=== PATIENT | female | born 1945 | race Native Hawaiian/Other Pacific Islander ===

== ENCOUNTER 2017-01-25 08:38 | Outpatient (CLI) | payer OTHER ==
[2017-01-25 09:38] LABS: POTASSIUM 3.5 mmol/L (3.6-5.2)
[2017-01-25 09:58] LABS: PLATELET COUNT 258 K/uL (152-353)
== END 2017-01-25 09:40 | disposition home or self-care (01) ==
LOC: LABW 08:38
PROVIDERS: Internal Medicine
DX: E11.9 Type 2 diabetes mellitus without complications (principal); E03.8 Other specified hypothyroidism
CPT/HCPCS: 36415; 80053; 80061; 81000; 82043; 82570; 83036; 84439; 84443; 85027

== ENCOUNTER 2017-08-19 09:28 | Outpatient (CLI) | payer OTHER ==
[2017-08-19 10:18] LABS: POTASSIUM 3.6 mmol/L (3.6-5.2)
[2017-08-19 10:30] LABS: PLATELET COUNT 324 K/uL (152-353)
== END 2017-08-19 19:50 | disposition home or self-care (01) ==
LOC: LABW 09:28
PROVIDERS: Internal Medicine
DX: E11.9 Type 2 diabetes mellitus without complications (principal); R82.99 Other abnormal findings in urine
CPT/HCPCS: 36415; 80053; 80061; 81000; 83036; 84439; 84443; 85027; 87077; 87086; 87088; 87186

== ENCOUNTER 2018-09-17 09:43 | Outpatient (CLI) | payer OTHER ==
[2018-09-17 10:32] LABS: PLATELET COUNT 302 K/uL (152-353)
[2018-09-17 11:00] LABS: POTASSIUM 3.2 mmol/L (3.6-5.2)
== END 2018-09-17 19:24 | disposition home or self-care (01) ==
LOC: LABW 09:43
PROVIDERS: Internal Medicine
DX: E11.9 Type 2 diabetes mellitus without complications (principal); E03.9 Hypothyroidism, unspecified
CPT/HCPCS: 36415; 80053; 80061; 81000; 82043; 82570; 83036; 84439; 84443; 85027

== ENCOUNTER 2018-10-19 16:05 | Outpatient (CLI) | payer OTHER ==
[2018-10-19] MEDS ORDERED: LOSA50TA PO (16:41)
[2018-10-19] MEDS ORDERED: METFORMIN HCL500 MG PO (16:41)
[2018-10-19] MEDS ORDERED: LIPITOR10 MG PO (16:42)
[2018-10-19] MEDS ORDERED: HYDROCHLOROT12.5 M1 PO (16:42)
[2018-10-19] MEDS ORDERED: UNITH DIRECT75 MCG PO (16:43)
[2018-10-20] MEDS ORDERED: COZAAR100 MG PO (16:34)
[2018-10-20] MEDS ORDERED: TRIA0.1C19 TOP (16:38)
[2018-10-20] MEDS ORDERED: IVERMECTIN3 MG PO (16:40)
[2018-10-20] MEDS ORDERED: [UNRECOGNIZED DRUG - OTHER] EX (16:43)
[2018-10-20] MEDS ORDERED: [UNRECOGNIZED DRUG - OTHER] EX (16:44)
== END 2018-10-19 16:09 | disposition short-term general hospital (02) ==
LOC: AMB 16:05
DX: R41.82 Altered mental status, unspecified (principal); R25.1 Tremor, unspecified; R50.9 Fever, unspecified
CPT/HCPCS: A0425; A0427

== ENCOUNTER 2018-10-19 16:15 | Inpatient (IN) | payer OTHER ==
[~2018-10-19] VITALS: Ht 157.5 cm; Wt 60.5 kg
[2018-10-19 16:15] VITALS: BP 125/54; TEMP 102.9
[2018-10-19] MEDS ORDERED: LOSA50TA PO (16:41)
[2018-10-19] MEDS ORDERED: METFORMIN HCL500 MG PO (16:41)
[2018-10-19] MEDS ORDERED: LIPITOR10 MG PO (16:42)
[2018-10-19] MEDS ORDERED: HYDROCHLOROT12.5 M1 PO (16:42)
[2018-10-19] MEDS ORDERED: UNITH DIRECT75 MCG PO (16:43)
[2018-10-19 16:59] LABS: PLATELET COUNT 233 K/uL (152-353)
[2018-10-19 17:15] LABS: PARTIAL THROMBOPLASTIN TIME 24.7 SECONDS (24.5-33.6)
[2018-10-19 17:17] LABS: POTASSIUM 2.6 mmol/L (3.6-5.2); SODIUM 134 mmol/L (136-145)
[2018-10-19 17:54] VITALS: TEMP 98.1
--- NOTE | 2018-10-19 20:30 | NUR ---
RECIEVED REPORT FROM ADELINA MEDINA RN
--- NOTE | 2018-10-19 20:55 | NUR ---
PT ARRIVED VIA W/C. PT AWAKE AND ALERT. ABLE TO TRANSFER TO BED W/O ASSIST.
[2018-10-20] VITALS (7 sets, daily range): BP systolic 91–123; BP diastolic 48–69; TEMP 97.5–102.2; Ht 157.5 cm; Wt 60.5 kg
--- NOTE | 2018-10-20 01:10 | NUR ---
Dr. Hilario at bedside. New orders received for Toradol 15mg IV x1 dose, stat labs, EKG and Chest XRay, noted and carried out.
--- NOTE | 2018-10-20 01:20 | NUR ---
Blood obtained for labs by Christopher Menard RN.
--- NOTE | 2018-10-20 01:20 | NUR ---
EKG obtained by Respiratory Therapist Wilton. Patient tolerated well. Dr. Hilario remains at bedside.
--- NOTE | 2018-10-20 01:26 | NUR ---
Radiology at bedside, obtained chest xray. Patient tolerated well.
[2018-10-20 01:30] LABS: PLATELET COUNT 185 K/uL (152-353)
[2018-10-20 01:38] LABS: POTASSIUM 3.2 mmol/L (3.6-5.2)
--- NOTE | 2018-10-20 01:53 | NUR ---
Patient's labs faxed to ER Department for Dr. Hilario to review.
--- NOTE | 2018-10-20 02:00 | NUR ---
Labs faxed to Dr. Hilario in ER Department, no new orders noted at this time.
--- NOTE | 2018-10-20 02:30 | NUR ---
TEMP 100.7
--- NOTE | 2018-10-20 02:45 | NUR ---
Dr. Hilario at bedside reassessing Patient. No new orders noted at this time.
--- NOTE | 2018-10-20 11:04 | NUR ---
PATIENT IS ON A 1800 CAL[employer]IE ADA DIET PLAN WITH DX. OF SIRS, UTI AND HYPOKALEMIA AND IS 62" AND IBW 110+/-10% AND WEIGHT AT 126.8 LBS AND GLUCOSE, CREAT, TSH, TRIG, WBC ALL ELEVATED AND K, CO2, CA, MG, HGB, HCT AND RBC ALL DEPRESSED. KCAL NEEDS FOR WEIGHT 9313-1921 X 30/35, PROTEIN 57.5-67.7 AND FLUIDS 2357++ TOLERATED D/T DX. IF NOT EATING 90-100% ADD A SUPPLEMENT. BMI 23.22 WNL'S. IF EATING POOR ADD A SUPPLEMENT TID RECOMMEND: 1- INCREASE FLUIDS TOLERATED. 2-IF NOT EATING 90 TO 100% OF MEALS ADD A SUPPLEMENT 1 X A DAY IF EATING <50% OF MEALS ADD A SUPPLEMENT TID AND A MVI 1 PO Q DAY.
[2018-10-20] MEDS ORDERED: COZAAR100 MG PO (16:34)
[2018-10-20] MEDS ORDERED: TRIA0.1C19 TOP (16:38)
[2018-10-20] MEDS ORDERED: IVERMECTIN3 MG PO (16:40)
[2018-10-20] MEDS ORDERED: [UNRECOGNIZED DRUG - OTHER] EX (16:43)
[2018-10-20] MEDS ORDERED: [UNRECOGNIZED DRUG - OTHER] EX (16:44)
--- NOTE | 2018-10-20 18:24 | NUR ---
9644 DR. COLLINS ORDERED A ONE TIME DOSE OF POTASSIUM 40MEQ PO. PULLED MEDICATION FROM [facility] AND GAVE TO PT. NOT SCANNED DUE TO [employer] NOT ALLOWING ME TO SCAN OR MANUALLY DOCUMENT THAT MEDICATION WAS GIVEN. WHEN TRYING TO DOC OR SCAN MEDICATION MESSAGE SHOWED THAT "DOCUMENTATION WAS FUFILLED BY DISPENSING MACHINE." CLARIFIED ORDER WITH DR. COLLINS BEFORE GIVING MEDICATION THAT SHE DID WANT THE PT TO HAVE A ONE TIME DOSE OF POTASSIUM 40MEQ PO NOW.
[2018-10-21] VITALS: BP 99/51; TEMP 98.1
[2018-10-21 04:00] VITALS: BP 122/52; TEMP 97.9
[2018-10-21 04:49] LABS: PLATELET COUNT 150 K/uL (152-353)
[2018-10-21 05:11] LABS: POTASSIUM 4.2 mmol/L (3.6-5.2)
[2018-10-21 08:00] VITALS: BP 145/55; TEMP 98.2
[2018-10-21 12:00] VITALS: BP 134/66; TEMP 97.7
[2018-10-21] MEDS ORDERED: LEVO250T2 PO (12:21)
--- NOTE | 2018-10-21 14:45 | NUR ---
1345 DISCHARGE INSTRUCTIONS GIVEN TO PT AND FAMILY. BOTH VERBALIZED UNDERSTANDING. 1430 PT LEFT WITH FAMILY VIA WC. NO DISTRESS NOTED
== END 2018-10-21 14:20 | disposition home or self-care (01) | DRG 872 ==
LOC: ED 16:17 → MED/SURG 19:57
PROVIDERS: Internal Medicine; ADMIT Student in an Organized Health Care Education/Training Program
DX: A41.89 Other specified sepsis (principal); N39.0 Urinary tract infection, site not specified; N17.8 Other acute kidney failure; E44.0 Moderate protein-calorie malnutrition; B96.20 Unspecified Escherichia coli [E. coli] as the cause of diseases classified elsewhere; E87.6 Hypokalemia; E83.42 Hypomagnesemia; I10 Essential (primary) hypertension; E03.8 Other specified hypothyroidism; E78.49 Other hyperlipidemia; E11.9 Type 2 diabetes mellitus without complications
CPT/HCPCS: 36415; 36600; 80048; 80053; 81000; 82805; 83605; 83735; 84484; 85027; 85610; 85730; 87040; 87077; 87086; 87088; 87186; 93005; 94760; 96361; 96365; 96366; 96375; 99284; J0696; J1650; J1885; J2270; J2405; J3475

== ENCOUNTER 2018-11-01 10:19 | Outpatient (CLI) | payer OTHER ==
[~2018-11-01 10:19] MED LIST: COZAAR100 MG PO; HYDROCHLOROT12.5 M1 PO; IVERMECTIN3 MG PO; LEVO250T2 PO; LIPITOR10 MG PO; LOSA50TA PO; METFORMIN HCL500 MG PO; TRIA0.1C19 TOP; UNITH DIRECT75 MCG PO; [UNRECOGNIZED DRUG - OTHER] EX; [UNRECOGNIZED DRUG - OTHER] EX
[2018-11-01 10:49] LABS: POTASSIUM 3.1 mmol/L (3.6-5.2)
[2018-11-01 10:51] LABS: PLATELET COUNT 470 K/uL (152-353)
== END 2018-11-01 19:43 | disposition home or self-care (01) ==
LOC: LABW 10:19
PROVIDERS: Internal Medicine
DX: E87.6 Hypokalemia (principal); D64.89 Other specified anemias; A41.51 Sepsis due to Escherichia coli [E. coli]
CPT/HCPCS: 36415; 80053; 81000; 83735; 85027

== ENCOUNTER 2019-02-12 09:35 | Outpatient (CLI) | payer OTHER ==
[2019-02-12 10:12] LABS: PLATELET COUNT 294 K/uL (152-353)
[2019-02-12 10:34] LABS: POTASSIUM 3.4 mmol/L (3.6-5.2)
== END 2019-02-12 19:49 | disposition home or self-care (01) ==
LOC: LABW 09:35
PROVIDERS: Internal Medicine
DX: E11.9 Type 2 diabetes mellitus without complications (principal); D64.89 Other specified anemias; E78.49 Other hyperlipidemia; E03.8 Other specified hypothyroidism
CPT/HCPCS: 36415; 80053; 80061; 81000; 82043; 82570; 83036; 84439; 84443; 85027

== ENCOUNTER 2019-02-28 13:16 | Outpatient (CLI) | payer OTHER | END 2019-02-28 20:27 | disposition home or self-care (01) | LOC: MAMMO 13:16 | DX: Z12.31 Encounter for screening mammogram for malignant neoplasm of breast (principal); Z13.820 Encounter for screening for osteoporosis; N95.8 Other specified menopausal and perimenopausal disorders ==

== ENCOUNTER 2020-11-21 02:19 | Emergency (ER) | payer OTHER ==
[~2020-11-21] VITALS: Ht 157.5 cm; Wt 60.3 kg
== END 2020-11-21 04:10 | disposition expired ==
LOC: ED 02:24
PROC: 5A12012 Performance of Cardiac Output, Single, Manual (ICD-10-PCS; principal; 2020-11-21)
PROC: 0BH17EZ Insertion of Endotracheal Airway into Trachea, Via Natural or Artificial Opening (ICD-10-PCS; 2020-11-21)
DX: I46.9 Cardiac arrest, cause unspecified (principal)
CPT/HCPCS: 92950; 96360; 96374; 99285; J0171; J3490